=== PATIENT | male | born 1980 | race Caucasian/White ===

== ENCOUNTER 2018-02-23 03:04 | Emergency (ER) | payer OTHER ==
[2018-02-23 03:11] VITALS: BP 139/86
[2018-02-23] MEDS ORDERED: LIDOCAINE-EPINEPH-TETRACAINE 3 ML SYRINGE TOP STA (03:25)
[2018-02-23] MEDS ORDERED: TETANUS/DIPHTHERIA/PERTUSSIS 0.5 ML SYRINGE IM ONE (03:26)
--- NOTE | 2018-02-23 04:11 | CT Report ---
Procedure Date: 02/23/2018 Accession Number: [id number] / [id number] Procedure: CT - Head W/O CPT Code: FULL RESULT: EXAM: CT HEAD EXAM DATE: 02/23/2018 03:43 AM. CLINICAL HISTORY: Head injury. COMPARISON: None. TECHNIQUE: Multiaxial CT images were obtained from the foramen magnum to the vertex. Reformats: Coronal. IV contrast: None. In accordance with CT protocol optimization, one or more of the following dose reduction techniques were utilized for this exam: automated exposure control, adjustment of mA and/or KV based on patient size, or use of iterative reconstructive technique. FINDINGS: Parenchyma: No intraparenchymal hemorrhage. No evidence of mass, midline shift, or CT findings of infarction. Owens-white differentiation is distinct. Extraaxial Spaces: Normal for age. No subdural or epidural collections identified. Ventricles: Normal in size and position. Sinuses and Orbits: Imaged paranasal sinuses, orbits, and mastoids show no significant abnormality. Bones: No evidence of fracture or calvarial defect. Other: None. IMPRESSION: Normal head CT. RADIA
[2018-02-23] MEDS ORDERED: BACITRACIN OINT TOP ONE (04:28)
--- NOTE | 2018-02-23 04:28 | ED Physician Documentation ---
PD HPI HEAD INJURY - Stated complaint Stated Complaint: HEAD LACERATION - Chief complaint Chief Complaint: Laceration - History obtained from History obtained from: Patient - History of Present Illness Mechanism of head injury: Fell, Blow, Laceration Where head injury occurred: Home Timing - onset: Today Severity Comments: moderate Location of injury: Left Quality of pain: Throbbing Associated symptoms: No: LOC, AMS, Amnesia Symptoms improve with: Nothing, Other Contributing factors: Intoxicated Similar symptoms before: Has not had sx before Recently seen: Not recently seen - Additional information Additional information: 37-year-old male presents to the emergency department for evaluation of a laceration after falling and striking his head. The patient has been drinking this evening. The patient reports no neck pain, torso or extremity injury. Tetanus is not up-to-date Review of Systems Constitutional: denies: Fever, Chills Eyes: denies: Discharge Ears: denies: Ear pain Nose: denies: Congestion Throat: denies: Dental pain / toothache Cardiac: denies: Chest pain / pressure GI: denies: Abdominal Pain Skin: reports: Laceration (s) Neurologic: reports: Headache Immunocompromised: denies: Chemotherapy PD PAST MEDICAL HISTORY - Past Medical History Past Medical History: No - Past Surgical History Past Surgical History: Yes - Present Medications Home Medications: Ambulatory Orders Medication Instructions Recorded Confirmed No Known Home Medications [No 02/23/16 02/23/16 Known Home Medications] - Allergies Allergies/Adverse Reactions: Allergies Allergy/AdvReac Type Severity Reaction Status Date / Time No Known Drug Allergies Allergy Verified 02/23/16 11:39 - Social History Does the pt smoke?: Yes Smoking Status: Current every day smoker Does the pt drink ETOH?: Yes Does the pt have substance abuse?: No - Immunizations Immunizations are current?: Yes PD ED PE NORMAL - General General: Alert and oriented X 3 - Neck Neck: Supple, no meningeal sign, No bony TTP - Cardiac Cardiac: RRR, Strong equal pulses - Respiratory Respiratory: No respiratory distress - Extremities Extremities: No deformity, Normal ROM s pain - Neuro Neuro: Alert and oriented X 3, rehab therapist 2-12 intact, No motor deficit, Normal speech - Psych Psych: Normal mood PD ED PE EXPANDED - HEENT HEENT: Head injury, Other (The patient has a 3 cm laceration in the scalp, no active bleeding, no evidence of foreign body, no crepitus or significant hematoma) HEENT Visual: 1 - laceration Results - Vitals Vitals: Vital Signs - 24 hr 02/23/18 03:07 Temperature 36.5 C Heart Rate 95 Respiratory 20 Rate Blood Pressure 139/86 H O2 Saturation 98 Oxygen O2 Source Room air - Rads (name of study) CT head Radiology: Final report received Procedures - Laceration (location) Scalp Length in cm: 3 Wound type: Linear Neurovascular status: Vascular intact Tendon involvement: Tendon intact Anesthesia: LET Wound Preparation: Irrigated copiously NS, To the base. No: FB identified Skin layer closure: [place] Other: Patient tolerated well, No complications, Tetanus booster given Complexity: Simple PD MEDICAL DECISION MAKING - ED course ED course: The patient sustained a head injury and laceration. There is no evidence of skull fracture or intracranial hemorrhage on CT scan. The patient's wound was closed using tyler. I have advised having the tyler removed in 7-10 days. The patient has a safe ride home. The patient appears appropriate for discharge and follow-up as an outpatient. I discussed warning signs and recommended returning to the emergency department immediately for worsening or any concerns. - Sepsis Event Vital Signs: Vital Signs - 24 hr 02/23/18 03:07 Temperature 36.5 C Heart Rate 95 Respiratory 20 Rate Blood Pressure 139/86 H O2 Saturation 98 Oxygen O2 Source Room air Departure - Departure Disposition: 01 Home, Self Care Clinical Impression: Closed head injury Qualifiers: Encounter type: initial encounter Qualified Code(s): S09.90XA - Unspecified injury of head, initial encounter Laceration of scalp Qualifiers: Encounter type: initial encounter Qualified Code(s): S01.01XA - Laceration without foreign body of scalp, initial encounter Condition: Good Instructions: ED Head Injury Closed, ED Laceration All Comments: This have your primary care remove your tyler in 7-10 days. Please return to the emergency department immediately for any worsening or any concerns
== END 2018-02-23 04:30 | disposition home or self-care (01) ==
LOC: ED 03:04
DX: S01.01XA Laceration without foreign body of scalp, initial encounter (principal); S09.90XA Unspecified injury of head, initial encounter; F17.200 Nicotine dependence, unspecified, uncomplicated; W17.89XA Other fall from one level to another, initial encounter; Y92.008 Other place in unspecified non-institutional (private) residence as the place of occurrence of the external cause
CPT/HCPCS: 12002; 70450; 90471; 90715; 99283; A9270